=== PATIENT | male | born 1980 | race Caucasian/White ===

== ENCOUNTER 2017-04-07 06:22 | Day surgery (SDC) | payer BC ==
[2017-04-05 10:44] VITALS: BMI 25.1
[~2017-04-07 06:22] MED LIST: DEXAMETHASONE SOD PHOSPHATE 10 MG/ML 1 ML VIAL IV ONE; HEPARIN SODIUM,PORCINE 5,000 UNIT/ML 1 ML VIAL SQ ONE; HYDROmorphone 1 MG/ML 1 ML SYRINGE IVP PRN; LACTATED RINGERS 1,000 ML IV SCH; LIDOCAINE 1% 20 ML VIAL (10MG/ML) FOR IV START INTRADERMA PRN; MIDAZOLAM 2 MG/2 ML VIAL IV PRN; ONDANSETRON 4 MG/2 ML VIAL IVP ONE; Pre Op ABX Message 1 EACH MISC MISCELLANE ONE; SCOPOLAMINE 1.5MG/72HR PATCH TRANSDERM ONE
--- NOTE | 2017-04-07 07:37 | P.GSHP ---
History of Present Illness H&P Date: 04/07/17 Chief Complaint: Multiple sebaceous cysts of scalp This a 36-year-old male who presents today for excision of sebaceous of scalp. Patient has 5 sebaceous cyst of scalp measuring 1-3 cm in size. Past Medical History Past Medical History: No Reported History Additional Past Medical History / Comment(s): DDD, SCIATICA ., 5 CYSTS ON HEAD. History of Any Multi-Drug Resistant Organisms: None Reported Past Surgical History: Tonsillectomy Past Anesthesia/Blood Transfusion Reactions: No Reported Reaction Past Psychological History: No Psychological Hx Reported Smoking Status: Current every day smoker Past Alcohol Use History: None Reported Additional Past Alcohol Use History / Comment(s): SMOKES 1PPD. SMOKING FOR 20 YRS OR MORE. Past Drug Use History: None Reported - Past Family History Mother Family Medical History: No Reported History Medications and Allergies Home Medications Medication Instructions Recorded Confirmed Type Ibuprofen [Motrin] 600 mg PO BID PRN MDD 1 DOSE IN 04/05/17 04/07/17 History THE LAST WEEK Allergies Allergy/AdvReac Type Severity Reaction Status Date / Time No Known Allergies Allergy Verified 04/07/17 06:35 Surgical - Exam Vital Signs Temp Pulse Resp BP Pulse Ox 97.7 F 78 16 125/66 96 04/07/17 06:47 04/07/17 06:47 04/07/17 06:47 04/07/17 06:47 04/07/17 06:47 - General well developed, no distress - Eyes PERRL - ENT normal pinna - Neck no masses - Respiratory normal expansion - Cardiovascular Rhythm: regular - Abdomen Abdomen: soft, non tender - Integumentary Multiple sebaceous cyst of scalp measuring 1-3 cm. Assessment and Plan Plan: Sebaceous cyst of scalp. We'll perform excision.
[2017-04-07] MEDS ORDERED: MIDAZOLAM 2 MG/2 ML VIAL ONE (07:47)
[2017-04-07] MEDS ORDERED: fentaNYL (PF) 50 MCG/ML 2 ML AMP ONE (07:47)
[2017-04-07] MEDS ORDERED: PROPOFOL 10 MG/ML 20 ML VIAL IV ONE (07:47)
[2017-04-07] MEDS ORDERED: BUPIVACAIN-EPI 0.5%-1:200,000 30 ML VIAL SQ ONE ×2 (08:09)
[2017-04-07] MEDS ORDERED: LACTATED RINGERS 1,000 ML IV ONE (08:36)
--- NOTE | 2017-04-07 08:37 | P.OP ---
Date of Procedure: 04/07/17 Preoperative Diagnosis: Sebaceous cyst of scalp 5 Postoperative Diagnosis: Sebaceous cyst of scalp 5 Procedure(s) Performed: Excision of sebaceous cyst of scalp 5 Implants: Anesthesia: MAC Surgeon: Henry Crowe Estimated Blood Loss (ml): 3 Pathology: other (Sebaceous cyst) Condition: stable Disposition: PACU Indications for Procedure: Operative Findings: Description of Procedure: The patient's placed on the operative table in supine position. He received general IV sedation. His scalp was prepped and draped usual sterile fashion. The patient had 5 sebaceous cyst located across the top right and left side of the scalp. This consists measured approximately 1-3 cm in size. Each cyst site was anesthetized 1% local Xylocaine. Skin was incised over the cyst and then using blunt and sharp dissection which cautery the cyst was excised and then the skin was closed with interrupted 3-0 Monocryl suture. This was done for each sebaceous cyst. Phthisis were excised in the identical fashion. The specimens of pathology. Patient tolerated procedure well and was sent to recovery in stable condition
[2017-04-07 09:01] VITALS: TEMP 98
[2017-04-07 09:16] VITALS: RESP 18
[2017-04-07 09:42] VITALS: BP 108/67; PULSE 59
== END 2017-04-07 09:50 | disposition home or self-care (01) ==
LOC: OR 06:22
PROVIDERS: ATTEND Surgery
DX: L72.3 Sebaceous cyst (principal); L72.11 Pilar cyst; F17.200 Nicotine dependence, unspecified, uncomplicated
CPT/HCPCS: 88304; 11422 ×2; 11423; 11421 ×2; J2250; J1644; J1100; J2405; J3010; J2704

== ENCOUNTER 2018-01-22 12:05 | Emergency (ER) | payer BC, OTHER ==
[2018-01-22 12:11] VITALS: RESP 18; TEMP 98
[2018-01-22] MEDS ORDERED: ceFAZolin 1,000 MG VIAL IM STA (12:25)
[2018-01-22] MEDS ORDERED: HYDROcodone/APAP 5-325MG 1 EACH TAB PO STA (12:26)
--- NOTE | 2018-01-22 12:34 | ED ---
Upper Extremity HPI - General Chief Complaint: Extremity Injury, Upper Stated Complaint: [facility] Time Seen by Provider: 01/22/18 12:20 Source: patient, RN notes reviewed Mode of arrival: ambulatory Limitations: no limitations - History of Present Illness Initial Comments: This a 37-year-old male presents emergency department to complaint of fingertip amputation. Patient states he was replacing fan belt on the exhaust at his work and states that his finger into the belt in which the tip of his finger with ran through the nelly. Patient states his tetanus is updated 3-4 years ago. He has NO KNOWN DRUG ALLERGIES. He is [id number]. - Related Data Home Medications Medication Instructions Recorded Confirmed Ibuprofen [Motrin Ib] 400 - 600 mg PO Q6HR PRN 01/22/18 01/22/18 Previous Rx's Medication Instructions Recorded Cephalexin [Keflex] 500 mg PO Q6HR #40 cap 01/22/18 Hydrocodone/Acetaminophen [[place] 1 tab PO Q6HR PRN #20 tab 01/22/18 5-325] Allergies Allergy/AdvReac Type Severity Reaction Status Date / Time No Known Allergies Allergy Verified 01/22/18 12:40 Review of Systems ROS Statement: Those systems with pertinent positive or pertinent negative responses have been documented in the HPI. ROS Other: All systems not noted in ROS Statement are negative. Past Medical History Past Medical History: No Reported History Additional Past Medical History / Comment(s): DDD, SCIATICA ., 5 CYSTS ON HEAD. History of Any Multi-Drug Resistant Organisms: None Reported Past Surgical History: Tonsillectomy Past Anesthesia/Blood Transfusion Reactions: No Reported Reaction Past Psychological History: No Psychological Hx Reported Smoking Status: Current every day smoker Past Alcohol Use History: None Reported Past Drug Use History: Marijuana - Past Family History Mother Family Medical History: No Reported History General Exam Limitations: no limitations General appearance: alert, in no apparent distress Head exam: Present: atraumatic, normocephalic, normal inspection Neck exam: Present: normal inspection. Absent: tenderness, meningismus, lymphadenopathy Respiratory exam: Present: normal lung sounds bilaterally. Absent: respiratory distress, wheezes, rales, rhonchi, stridor Cardiovascular Exam: Present: regular rate, normal rhythm, normal heart sounds. Absent: systolic murmur, diastolic murmur, rubs, gallop, clicks Extremities exam: Present: other (Right hand second digit there is a distal tip amputation, no active bleeding pain medication is proximal of the nail) Course Vital Signs 01/22/18 12:08 Temperature 98.0 F Pulse Rate 95 Respiratory 18 Rate Blood Pressure 119/82 O2 Sat by Pulse 100 Oximetry Medical Decision Making - Medical Decision Making 37-year-old male presents for chief complaint of distal finger amputation. Patient tetanus is up-to-date patient was given a antibiotics in emergency department. Patient's x-ray shows distal to congestion. Patient finger was cleaned, wrapped in a bulky dressing and finger splint applied patient follow- up with orthopedics tomorrow return parameters discussed. Disposition Clinical Impression: Traumatic amputation of fingertip Disposition: HOME SELF-CARE Condition: Stable Instructions: Finger Amputation (ED) Additional Instructions: Please return to the Emergency Department if symptoms worsen or any other concerns. Prescriptions: Cephalexin [Keflex] 500 mg PO Q6HR #40 cap Hydrocodone/Acetaminophen [[place] 5-325] 1 tab PO Q6HR PRN #20 tab PRN Reason: Pain Referrals: Barry Trevino MD [Primary Care Provider] - 1-2 days Robert Deluna DO [Doctor of Osteopathic Medicine] - 1-2 days
--- NOTE | 2018-01-22 13:06 | XR ---
EXAMINATION TYPE: XR finger RT , 3 VIEWS DATE OF EXAM ORDERED: 01/22/2018 HISTORY: distal amputation. COMPARISON: None. FINDINGS: There has been an amputation of the distal phalanx of the right index finger. The remainin g distal phalanx is fractured. The fracture is comminuted and minimally displaced. No radiopaque fore ign body is seen. IMPRESSION: DISTAL AMPUTATION OF THE INDEX FINGER WITH A RESIDUAL DISTAL PHALANX BEING COMMINUTED AND MILDLY DISP LACED. CODE B: INITIAL ASSESSMENT FOR OPEN FRACTURE TYPE ONE OR 2.
[2018-01-22 14:10] VITALS: BP 112/73; PULSE 79
== END 2018-01-22 14:07 | disposition home or self-care (01) ==
LOC: EC 12:05
DX: S68.620A Partial traumatic transphalangeal amputation of right index finger, initial encounter (principal); S61.212A Laceration without foreign body of right middle finger without damage to nail, initial encounter; F17.200 Nicotine dependence, unspecified, uncomplicated; W23.0XXA Caught, crushed, jammed, or pinched between moving objects, initial encounter; Y99.0 Civilian activity done for income or pay; Y92.69 Other specified industrial and construction area as the place of occurrence of the external cause
CPT/HCPCS: 99283; 12001; 96372; 73140; J0690